=== PATIENT | male | born 1980 | race African-American/Black ===

== ENCOUNTER 2016-12-15 09:49 | Emergency (ER) | payer SELFPAY ==
[~2016-12-15] VITALS: Ht 195.6 cm; Wt 159.0 kg
[2016-12-15 09:52] VITALS: BP 188/107; PULSE 76; RESP 24; TEMP 98.7; O2SAT 96
[2016-12-15] MEDS ORDERED: SODIUM CHLOR 0.9% 1000 ML INJ 1,000 ML IV SCH (10:17)
--- NOTE | 2016-12-15 10:18 | PD ---
HPI Chief Complaint: GI Complaint Time Seen by Provider: 10:16 Travel History International Travel<30 days: No Contact w/Intl Traveler<30days: No Traveled to known affect area: No History of Present Illness HPI Is a 36-year-old male presents emergency Department with nausea vomiting abdominal cramping for the past 2 days. Patient states was evaluated in [facility] and with labs CT scan and discharged on Zofran. Patient states she's not been able to hold any fluids down at home. Complains of generalized abdominal cramping which is waxing and waning. Patient states he did have some diarrhea which resolved. No blood in the emesis no blood in the stool. Denies Any Fevers. Denies Any Sick Contacts at Home. PFSH Past Medical History Asthma: Yes Hypertension: Yes Past Surgical History Surgical History: No Previous Surgery Social History Alcohol Use: Yes (OCC) Tobacco Use: Yes Substance Use: No (POT) Allergies-Medications (Allergen,Severity, Reaction): Coded Allergies: Penicillin (Verified Allergy, Unknown, 12/15/16) Reported Meds & Prescriptions Reported Meds & Active Scripts Active Protonix (Pantoprazole Sodium) 40 Mg Tab 40 Mg PO DAILY Phenergan (Promethazine HCl) 25 Mg Tab 25 Mg PO Q6H PRN Review of Systems Except as stated in HPI: all other systems reviewed are Neg Physical Exam Narrative GENERAL: Well-developed well-nourished, morbidly obese but in no apparent distress. SKIN: Focused skin assessment warm/dry. HEAD: Atraumatic. Normocephalic. EYES: Pupils equal and round. No scleral icterus. No injection or drainage. ENT: No nasal bleeding or discharge. Mucous membranes pink and moist. NECK: Trachea midline. No JVD. CARDIOVASCULAR: Regular rate and rhythm. No murmur appreciated. RESPIRATORY: No accessory muscle use. Clear to auscultation. Breath sounds equal bilaterally. GASTROINTESTINAL: Abdomen soft, non-tender, nondistended. Hepatic and splenic margins not palpable. No CVA tenderness. MUSCULOSKELETAL: No obvious deformities. No clubbing. No cyanosis. No edema. NEUROLOGICAL: Awake and alert. No obvious cranial nerve deficits. Motor grossly within normal limits. Normal speech. PSYCHIATRIC: Appropriate mood and affect; insight and judgment normal. Data Data Last Documented VS Vital Signs Date Time Temp Pulse Resp B/P Pulse Ox O2 Delivery O2 Flow Rate FiO2 12/15/16 10:54 20 98 Room Air 12/15/16 09:52 98.7 76 188/107 Orders Complete Blood Count With Diff (12/15/16 10:17) Comprehensive Metabolic Panel (12/15/16 10:17) Lipase (12/15/16 10:17) Urinalysis - C+S If Indicated (12/15/16 10:17) Iv Access Insert/Monitor (12/15/16 10:17) Ecg Monitoring (12/15/16 10:17) Oximetry (12/15/16 10:17) Ondansetron Inj (Zofran Inj) (12/15/16 10:30) Sodium Chlor 0.9% 1000 Ml Inj (Ns 1000 M (12/15/16 10:17) Sodium Chloride 0.9% Flush (Ns Flush) (12/15/16 10:30) Labs Laboratory Tests Test 12/15/16 10:43 White Blood Count 13.2 TH/MM3 Red Blood Count 4.28 MIL/MM3 Hemoglobin 13.2 GM/DL Hematocrit 40.5 % Mean Corpuscular Volume 94.6 FL Mean Corpuscular Hemoglobin 30.9 PG Mean Corpuscular Hemoglobin 32.7 % Concent Red Cell Distribution Width 14.1 % Platelet Count 239 TH/MM3 Mean Platelet Volume 8.3 FL Neutrophils (%) (Auto) 80.0 % Lymphocytes (%) (Auto) 12.7 % Monocytes (%) (Auto) 7.1 % Eosinophils (%) (Auto) 0.0 % Basophils (%) (Auto) 0.2 % Neutrophils # (Auto) 10.6 TH/MM3 Lymphocytes # (Auto) 1.7 TH/MM3 Monocytes # (Auto) 0.9 TH/MM3 Eosinophils # (Auto) 0.0 TH/MM3 Basophils # (Auto) 0.0 TH/MM3 CBC Comment DIFF FINAL Differential Comment Sodium Level 139 MEQ/L Potassium Level 3.5 MEQ/L Chloride Level 100 MEQ/L Carbon Dioxide Level 31.6 MEQ/L Anion Gap 7 MEQ/L Blood Urea Nitrogen 12 MG/DL Creatinine 0.81 MG/DL Estimat Glomerular Filtration 131 ML/MIN Rate Random Glucose 99 MG/DL Calcium Level 9.1 MG/DL Total Bilirubin 0.6 MG/DL Aspartate Amino Transf 37 U/L (AST/SGOT) Alanine Aminotransferase 53 U/L (ALT/SGPT) Alkaline Phosphatase 70 U/L Total Protein 7.5 GM/DL Albumin 4.0 GM/DL Lipase 144 U/L MDM Medical Decision Making Medical Screen Exam Complete: Yes Emergency Medical Condition: Yes Differential Diagnosis Gastritis, gastric enteritis, GERD, acute abdomen unlikely. Narrative Course Patient roomed in the emergency department, he states is feeling somewhat run down. He was given normal saline as well as Zofran. Patient states he is feeling much better afterwards. Patient's laboratory workup shows minimally elevated white blood cell count. His abdomen is benign however. He did have a CAT scan yesterday and I do not see a reason to repeat it in fact the risks of repeat radiation exposure likely outweigh the benefits. Discussed with her need for follow-up with a primary care physician returned ED criteria. Discussed symptomatically management push by mouth fluids. We'll prescribe Phenergan as well as Protonix. He is stable for discharge at this time. Diagnosis Primary Impression: Nausea & vomiting Qualified Code: R11.2 - Nausea and vomiting, intractability of vomiting not specified, unspecified vomiting type Additional Impression: Mild dehydration Referrals: Ekaterina Mean MD Med/Other Pt SpecificInfo: Prescription(s) given Scripts Pantoprazole (Protonix)40 Mg Tab40 Mg PO DAILY #30 TAB Ref 0 Prov:Aubrey Carolina MD 12/15/16 Promethazine (Phenergan)25 Mg Tab25 Mg PO Q6H PRN (Nausea/Vomiting) #20 TAB Ref 0 Prov:Aubrey Carolina MD 12/15/16 Disposition: 01 DISCHARGE HOME Condition: Stable Aubrey Carolina MD Dec 15, 2016 10:18
[2016-12-15] MEDS ORDERED: SODIUM CHLORIDE 0.9% FLUSH 10 ML FLUSH IV FLUSH PRN (10:30)
[2016-12-15] MEDS ORDERED: ONDANSETRON HCL 4 MG/2 ML VIAL IVP ONE (10:30)
[2016-12-15 10:54] VITALS: RESP 20; O2SAT 98
[2016-12-15 11:03] LABS: AUTOMATED NEUTROPHIL # 10.6 TH/MM3 (1.8-7.7); BASOPHIL % 0.2 % (0.0-2.0); HEMATOCRIT 40.5 % (39.0-51.0); HEMO FLAGS DIFF FINAL; LYMPH % 12.7 % (9.0-44.0); LYMPHOCYTE # 1.7 TH/MM3 (1.0-4.8); MEAN CELL VOLUME 94.6 FL (80.0-100.0); MEAN CORPUSCULAR HEMOGLOBIN 30.9 PG (27.0-34.0); MEAN CORPUSCULAR HGB CONC 32.7 % (32.0-36.0); MONO % 7.1 % (0.0-8.0); PLATELET COUNT 239 TH/MM3 (150-450); RED BLOOD COUNT 4.28 MIL/MM3 (4.50-5.90); RED CELL DISTRIBUTION WIDTH 14.1 % (11.6-17.2); WHITE BLOOD COUNT 13.2 TH/MM3 (4.0-11.0)
[2016-12-15 11:18] LABS: ALT (GPT) 53 U/L (12-78); ANION GAP 7 MEQ/L (5-15); AST (GOT) 37 U/L (15-37); BICARBONATE 31.6 MEQ/L (21.0-32.0); BLOOD UREA NITROGEN 12 MG/DL (7-18); CHLORIDE 100 MEQ/L (98-107); GLOMERULAR FILTRATION RATE 131 ML/MIN (>89); POTASSIUM 3.5 MEQ/L (3.5-5.1); SODIUM (NA) 139 MEQ/L (136-145)
[2016-12-15 11:20] LABS: ALKALINE PHOSPHATASE 70 U/L (45-117); TOTAL BILIRUBIN ADULT 0.6 MG/DL (0.2-1.0)
[2016-12-15] MEDS ORDERED: PROM25TA5 PO (11:43)
[2016-12-15] MEDS ORDERED: PROT40TA PO (12:28)
== END 2016-12-15 12:43 | disposition home or self-care (01) ==
LOC: NEPD 09:49
DX: R11.2 Nausea with vomiting, unspecified (principal); E86.0 Dehydration; R10.84 Generalized abdominal pain; R19.7 Diarrhea, unspecified; I10 Essential (primary) hypertension; Z72.0 Tobacco use; Z87.09 Personal history of other diseases of the respiratory system
CPT/HCPCS: 80053; 83690; 85025; 96374; 99284; J2405; J7030